=== PATIENT | male | born 1955 | race Two or more races ===

== ENCOUNTER 2019-03-08 14:16 | Emergency (ER) | payer BC, OTHER ==
[~2019-03-08] VITALS: Ht 167.6 cm; Wt 72.6 kg
[2019-03-08 14:38] VITALS: BP 148/56
== END 2019-03-08 16:22 | disposition home or self-care (01) ==
LOC: ER 14:16
DX: R51 Headache (principal); T45.515A Adverse effect of anticoagulants, initial encounter; I10 Essential (primary) hypertension; R42 Dizziness and giddiness; Z95.0 Presence of cardiac pacemaker; Y92.89 Other specified places as the place of occurrence of the external cause
CPT/HCPCS: 70450; 93005